=== PATIENT | female | born 1945 | race Caucasian/White ===

== ENCOUNTER 2016-11-01 13:37 | Inpatient (IN) | payer MEDICARE, OTHER ==
[~2016-11-01] VITALS: Ht 157.5 cm; Wt 64.2 kg
[~2016-11-01 13:37] MED LIST: ALPR0.5T6 PO; ATEN50TA PO; BENA10TA48 PO; ENAL10TA88 PO; FAMO10TA84 PO; METF-480 PO; OMEP20CA16 PO; PHE15 PO
[2016-11-01] MEDS ORDERED: NITROGLYCERIN (SL) 0.4 MG TAB SL PRN (15:30)
[2016-11-01] MEDS ORDERED: NACL 0.9% 3 ML SYG IV SCH (15:30)
[2016-11-01] MEDS ORDERED: hydrALAzine 20 MG INJ IV PRN (15:30)
[2016-11-01] MEDS ORDERED: MAGNESIUM HYDROXIDE 30ML CUP PO PRN (15:30)
[2016-11-01] MEDS ORDERED: DOCUSATE SODIUM 100 MG CAP PO PRN (15:30)
[2016-11-01] MEDS ORDERED: ACETAMINOPHEN 325 MG TAB PO PRN (15:30)
[2016-11-01] MEDS ORDERED: NA PHOSPHATE/BIPHOS 133 ML ENEMA PR PRN (15:30)
[2016-11-01] MEDS ORDERED: ALBUTEROL/IPRATROPIUM (NEB) 3 ML AMP HHN PRN (15:30)
[2016-11-01] MEDS ORDERED: ONDANSETRON 4 MG INJ IV PRN (15:30)
[2016-11-01 15:40] VITALS: BP 173/77; PULSE 69; RESP 18
[2016-11-01] MEDS ORDERED: CEFTRIAXONE 1 GM/50 ML (PMX) 50 ML IVPB SCH (16:00)
[2016-11-01 16:09] VITALS: Ht 157.5 cm; Wt 64.2 kg
[2016-11-01] MEDS: HYDROCODONE/APAP (5/325) TAB PO PRN ×2 (16:32→23:05)
[2016-11-01] MEDS: SOD CHLORIDE 0.45% 1,000 ML IV SCH (16:33)
[2016-11-01] MEDS ORDERED: PHENOBARBITAL 32.4 MG TAB PO PRN (19:30)
[2016-11-01] MEDS ORDERED: HYDROmorphONE 1 MG/ML SYG IV PRN (19:30)
[2016-11-01] MEDS ORDERED: PHENOBARBITAL PO SCH (19:30)
[2016-11-01] MEDS: morphine 2 MG INJ IV PRN (20:08)
--- NOTE | 2016-11-01 20:34 | HP ---
DATE OF ADMISSION: 11/01/2016 A 71-year-old female. CHIEF COMPLAINT: Abdominal pain. HISTORY OF PRESENT ILLNESS: A 71-year-old female with past medical history of GI bleeding ulcer, ty pe 2 diabetes, essential hypertension, abdominal hernias, resistant UTIs in the past, diverticulitis , who has been having abdominal pain for the last 2 days. She went to it looks like an outside hosp [facility] ER 24 hours ago, was sent home with p.o. antibiotics because they thought she had a UTI, but sh e continued to have pain at home. She had nausea symptoms, but no vomiting. She has no headaches o r dizziness or loss of consciousness. No chest pain or shortness of breath, no fevers or chills, no upper or lower GI bleeding. She went back to the outside hospital ER today and they did a CT scan that did show actually some abdominal wall hernias; however, before that she had a urine culture don e 24 hours before, and that showed greater than 100,000 E. coli urinary tract infection and 2 to 5 W BCs in her urine 24 hours ago, so she was diagnosed with left-sided pyelonephritis, as she had posit jorge left CVA tenderness. She has been transferred over here due to insurance purposes. PAST MEDICAL HISTORY: As stated above. ALLERGIES: NO KNOWN DRUG ALLERGIES. HOME MEDICATIONS: 1. Atenolol 50 mg daily. 2. Benazepril 10 mg daily. 3. Enalapril 1 tab daily. 4. Alprazolam 1 tablet p.o. at bedtime p.r.n. 5. Phenobarbital 1 tab p.o. q.6h. p.r.n. 6. Famotidine 20 mg daily. 7. Omeprazole 20 mg daily. 8. Metformin 1 tab daily. PAST SURGICAL HISTORY: She had an appendix removal in the past, diverticulitis surgery in the past, and GI ulcer bleeding and surgery in the past. SOCIAL HISTORY: Negative for smoking, drinking, or IV drug abuse. PHYSICAL EXAMINATION: VITAL SIGNS: T-max 98.6, pulse 69, respirations 18, blood pressure 173/77, saturating at 98% nasal cannula. GENERAL: Patient sitting in chair. Family members at the bedside. She is in mild distress but sofia rt. HEENT: Pupils equal, round, react to light. Extraocular muscles intact. NECK: Supple, no thyromegaly. LUNGS: Clear to auscultation bilaterally. CARDIOVASCULAR: Normal S1, S2. No rubs or gallops. Regular rate and rhythm. ABDOMEN: Positive left-sided CVA tenderness. Otherwise, normal bowel sounds. No rebound or guardi ng otherwise. MUSCULOSKELETAL: No lower extremity bilaterally. NEUROLOGIC: No focal deficits. LABORATORIES: INR is 1.1. WBC 4.35, hemoglobin 13, hematocrit 39.4, platelets of 155. Chest x-ray showed no acute processes in the lungs, mild cardiomegaly. UA today shows negative nitrites, negative ketones, negative leukocyte esterase, but again (see HPI) , she had a positive urine culture 24 hours ago at the outside hospital. Today the [facility] panel is essentially normal. Lipase is normal. Lactate is normal. She did have a CT abdomen and pelvis performed. It did show new midline ventral abdominal wall kimmie ia in the upper abdomen. The left lateral pelvic abdominal wall hernia has increased moderately in size. Both of these contain only omental fat. Gallbladder is distended. ASSESSMENT/PLAN: This is a 71-year-old female coming in with signs of left flank pain, possibly sec ondary to pyelonephritis given the positive urine culture, and also abdominal wall hernias. 1. Left flank pain secondary most likely to pyelonephritis. Put her on broad spectrum antibiotics, IV fluids, check TSH, A1c, lipid panel. Follow up final culture results. Check labs in the [facility]. IV fluids, antiemetics as well. Continue broad-spectrum antibiotics. 2. History of type 2 diabetes. Check A1c, put her on sliding scale insulin. 3. Essential hypertension. Continue current blood pressure medicines that include atenolol and hyd ralazine p.r.n. 4. Abdominal hernias. Again, continue to monitor for now. If her pain worsens, we will consider [facility] consult at that time. 5. Prior history of diverticulitis. No present issues. Continue to monitor for now. 6. Gastrointestinal ulcer bleeding history. Again, continue both H2 constance and proton pump inhibi tors. No signs of any bleeding presently. 7. Deep venous thrombosis prophylaxis: She is on Heparin subcutaneously. Dictated By: GISEL SCHWARTZ Conf#: [id number] DID#: [id number]
[2016-11-01 21:28] VITALS: BP 173/78; RESP 20
[2016-11-01] MEDS: PIPER-TAZO 3.375 GM IV (PMX) 100 ML IVPB SCH (21:47)
[2016-11-01] MEDS: ATENOLOL 50 MG TAB PO SCH (21:48)
[2016-11-01] MEDS: HEPARIN 5,000 UNIT/0.5 ML VIAL SC SCH (21:49)
[2016-11-01 23:01] VITALS: BP 159/91; PULSE 57
[2016-11-02] MEDS: PIPER-TAZO 3.375 GM IV (PMX) 100 ML IVPB SCH ×5 (00:37→23:10)
[2016-11-02] MEDS: LORAZEPAM 2 MG INJ IV PRN (01:58)
[2016-11-02] MEDS: SOD CHLORIDE 0.45% 1,000 ML IV SCH ×3 (04:50→23:11)
[2016-11-02 04:54] LABS: ADD UMIC YES; URINE BILIRUBIN (Dip) NEGATIVE (NEGATIVE); URINE BLOOD (Dip) TRACE (NEGATIVE); URINE COLOR LT. YELLOW (YELLOW); URINE GLUCOSE (Dip) NEGATIVE (NEGATIVE); URINE KETONES (Dip) NEGATIVE (NEGATIVE); URINE LEUKOCYTE ESTERASE (Dip) NEGATIVE (NEGATIVE); URINE NITRITE (Dip) NEGATIVE (NEGATIVE); URINE TOTAL PROTEIN (Dip) NEGATIVE (NEGATIVE); URINE UROBILINOGEN (Dip) 0.2 E.U./dL (0.1-1.0)
[2016-11-02] MEDS: PANTOPRAZOLE 40 MG INJ IV SCH (05:08)
[2016-11-02 05:10] LABS: ADD SCAN DIFF NO
[2016-11-02 05:15] LABS: BASOPHILS % 0.4 % (0.0-2.0); EOSINOPHILS # 0.1 10^3/ul (0.0-0.5); EOSINOPHILS % 2.1 % (0.0-7.0); HEMATOCRIT 36.8 % (37.0-47.0); HEMOGLOBIN 11.9 g/dl (12.0-16.0); LYMPHOCYTES # 1.4 10^3/ul (0.8-2.9); LYMPHOCYTES % 26.4 % (15.0-51.0); MEAN CORPUSCULAR HGB CONC 32.3 g/dl (32.0-37.0); MEAN CORPUSCULAR VOLUME 92.7 fl (82.0-101.0); MONOCYTE # 0.5 10^3/ul (0.3-0.9); MONOCYTES % 9.5 % (0.0-11.0); NEUTROPHIL # 3.3 10^3/ul (1.6-7.5); NEUTROPHILS % 61.2 % (39.0-77.0); PLATELET COUNT 142 10^3/UL (140-415); RED BLOOD COUNT 3.97 10^6/ul (4.20-5.40); RED CELL DISTRIBUTION WIDTH 14.1 % (11.5-14.5); WHITE BLOOD COUNT 5.4 10^3/ul (4.8-10.8)
[2016-11-02 05:41] LABS: CALCIUM 9.1 mg/dl (8.4-10.2); CHOL/HDL RATIO 3.1 RATIO; CREATININE 1.04 mg/dl (0.44-1.00); MAGNESIUM 2.4 mg/dl (1.7-2.5); PHOSPHORUS 3.7 mg/dl (2.5-4.9); POTASSIUM 4.1 mmol/L (3.5-5.1)
[2016-11-02 05:43] LABS: BACTERIA,URINE FEW; SQUAMOUS EPITHELIAL CELL,UR FEW; URINE RBCS 0-2 /HPF (0)
[2016-11-02 06:03] LABS: THYROID STIMULATING HORMONE 4.34 MIU/L (0.465-4.680)
[2016-11-02 08:14] VITALS: BP 127/60; RESP 16
[2016-11-02] MEDS ORDERED: NON-FORMULARY/PATIENT OWN MED (Famotidine* 10 MG) PO SCH (09:00)
[2016-11-02] MEDS: HEPARIN 5,000 UNIT/0.5 ML VIAL SC SCH ×2 (09:33→21:00)
[2016-11-02] MEDS: FAMOTIDINE 20 MG TAB PO SCH (09:34)
[2016-11-02] MEDS: ATENOLOL 50 MG TAB PO SCH (09:35)
[2016-11-02] MEDS: HYDROCODONE/APAP (5/325) TAB PO PRN ×3 (11:04→23:10)
--- NOTE | 2016-11-02 15:19 | PN ---
Date/Time of Note Date/Time of Note DATE: 11/02/16 TIME: 15:17 Assessment/Plan VTE Prophylaxis VTE Prophylaxis Intervention: heparin Lines/Catheters IV C[facility] Type [facility]from [facility] Peripheral IV Urinary Cath still in place: No Assessment/Plan Chief Complaint/Hosp Course ASSESSMENT/PLAN: This is a 71-year-old female coming in with signs of left flank pain, possibly secondary to pyelonephritis given the positive urine culture, and also abdominal wall hernias. 1. Left flank pain secondary most likely to pyelonephritis - improved - continue broad spectrum antibiotics, IV fluids, - Follow up final culture results. - IV fluids, antiemetics as well. 2. History of type 2 diabetes - sliding scale insulin. 3. Essential hypertension. Continue current blood pressure medicines that include atenolol and hydralazine p.r.n. 4. Abdominal hernias. Again, continue to monitor for now. If her pain worsens , we will consider getting surgery consult at that time. 5. Prior history of diverticulitis. No present issues. Continue to monitor for now. 6. Gastrointestinal ulcer bleeding history. Again, continue both H2 constance and proton pump inhibitors. No signs of any bleeding presently. 7. Deep venous thrombosis prophylaxis: She is on Heparin subcutaneously. Problems: Subjective 24 Hr Interval Summary Free Text/Dictation Pt has less left flank pain. Exam/Review of Systems Vital Signs Vitals Vital Signs Date Time Temp Pulse Resp B/P Pulse Ox O2 Delivery O2 Flow Rate FiO2 11/02/16 08:14 98.2 60 16 127/60 93 11/01/16 15:40 Nasal Cannula 2.0 Intake and Output 11/01/16 11/01/16 11/02/16 15:00 23:00 07:00 Intake Total 150 ml 1987 ml Balance 150 ml 1988 ml Exam GENERAL: Patient sitting in chair. Family members at the bedside. She is in mild distress but alert. HEENT: Pupils equal, round, react to light. Extraocular muscles intact. NECK: Supple, no thyromegaly. LUNGS: Clear to auscultation bilaterally. CARDIOVASCULAR: Normal S1, S2. No rubs or gallops. Regular rate and rhythm. ABDOMEN: less left-sided CVA tenderness. Otherwise, normal bowel sounds. No rebound or guarding otherwise. MUSCULOSKELETAL: No lower extremity bilaterally. NEUROLOGIC: No focal deficits. Results Result Diagram: 11/02/16 0440 11/02/16 0440 Results 24 hrs Laboratory Tests Test 11/01/16 16:05 11/01/16 16:37 11/01/16 23:59 11/02/16 04:40 Free Thyroxine 1.18 Bedside Glucose 108 Urine Color LT. YELLOW Urine Clarity CLEAR Urine pH 6.5 Urine Specific [place] <=1.005 L Urine Ketones NEGATIVE Urine Nitrite NEGATIVE Urine Bilirubin NEGATIVE Urine Urobilinogen 0.2 E.U./dL Urine Leukocyte Esterase NEGATIVE Urine Microscopic RBC 0-2 Urine Microscopic WBC 0-2 Urine Squamous Epithelial Cells FEW Urine Bacteria FEW Urine Hemoglobin TRACE Urine Glucose NEGATIVE Urine Total Protein NEGATIVE White Blood Count 5.4 Red Blood Count 3.97 L Hemoglobin 11.9 L Hematocrit 36.8 L Mean Corpuscular Volume 92.7 Mean Corpuscular Hemoglobin 30.0 Mean Corpuscular Hemoglobin Concent 32.3 Red Cell Distribution Width 14.1 Platelet Count 142 Mean Platelet Volume 11.0 H Neutrophils % 61.2 Lymphocytes % 26.4 Monocytes % 9.5 Eosinophils % 2.1 Basophils % 0.4 Nucleated Red Blood Cells % 0.0 Neutrophils # 3.3 Lymphocytes # 1.4 Monocytes # 0.5 Eosinophils # 0.1 Basophils # 0.0 Nucleated Red Blood Cells # 0.0 Sodium Level 141 Potassium Level 4.1 Chloride Level 106 Carbon Dioxide Level 29 Anion Gap 10 Blood Urea Nitrogen 12 Creatinine 1.04 H Glucose Level 118 Hemoglobin A1c 5.5 Calcium Level 9.1 Phosphorus Level 3.7 Magnesium Level 2.4 Triglycerides Level 78 Cholesterol Level 130 LDL Cholesterol, Calculated 73 HDL Cholesterol 41 Cholesterol/HDL Ratio 3.1 Thyroid Stimulating Hormone (TSH) 4.340 Medications Medications Current Medications Ondansetron HCl (Zofran Inj) 4 mg Q6H PRN IV NAUSEA AND/OR VOMITING; Start at 15:30 Acetaminophen (Tylenol Tab) 650 mg Q6H PRN PO PAIN LEVEL 1-3 OR FEVER; Start at 15:30 Acetaminophen/ Hydrocodone Bitart ([place] (5/325)) 1 tab Q6H PRN PO MODERATE PAIN LEVEL 4-6 Last administered on 11/02/16t 11:04; Admin Dose 1 TAB; Start at 15:30 Morphine Sulfate (morphine) 2 mg Q4H PRN IV SEVERE PAIN LEVEL 7-10 Last administered on 11/01/16 20:08; Admin Dose 2 MG; Start 11/01/16 at 15:30 Docusate Sodium (Colace) 100 mg Q12H PRN PO CONSTIPATION; Start 11/01/16 at 15: 30 Magnesium Hydroxide (Milk Of Mag) 30 ml DAILY PRN PO CONSTIPATION; Start at 15:30 Sodium Biphosphate/ Sodium Phosphate (Fleet Enema) 133 ml DAILY PRN [place] CONSTIPATION; Start 11/01/16 at 15:30 Pantoprazole (Protonix Iv) 40 mg DAILY@06 IV Last administered on 11/02/16 05: 08; Admin Dose 40 MG; Start 11/02/16 at 06:00 Heparin Sodium (Porcine) 5000 unit 5,000 unit Q12 SC Last administered on 09:33; Admin Dose 5,000 UNIT; Start 11/01/16 at 21:00 Sodium Chloride (1/2 NS) 1,000 ml @ 75 mls/hr [id number] IV Last administered on 11/02/16 08:15; Admin Dose 75 MLS/HR; Start 11/01/16 at 15:30 Lorazepam (Ativan) 0.5 mg Q6H PRN IV ANXIETY Last administered on 11/02/16 01: 58; Admin Dose 0.5 MG; Start 11/01/16 at 15:30 Hydralazine HCl (Apresoline) 10 mg Q6H PRN IV SBP GREATER THAN 180; Start 11/01 at 15:30 Nitroglycerin 1 tab 1 tab Q5M PRN SL ANGINA; Start 11/01/16 at 15:30 Piperacillin Sod/ Tazobactam Sod (Zosyn 3.375gm/ 100 ml (Pmx)) 100 ml @ 200 mls /hr Q6 IVPB Last administered on 11/02/16 11:04; Admin Dose 200 MLS/HR; Start 11/01/16 at 19:30 Hydromorphone HCl (Dilaudid) 1 mg Q4H PRN IV PAIN; Start 11/01/16 at 19:30 Atenolol (Tenormin) 50 mg DAILY PO Last administered on 11/02/16 09:35; Admin Dose 50 MG; Start 11/01/16 at 19:30 Famotidine (Pepcid) 10 mg DAILY PO Last administered on 11/02/16t 09:34; Admin Dose 10 MG; Start 11/02/16 at 09:00 Phenobarbital (Luminal) 16.2 mg Q6H PRN PO XX; Start 11/01/16 at 19:30 GISEL AGUILAR November 02, 2016 15:19
[2016-11-02 21:02] VITALS: BP 135/59; RESP 18
[2016-11-03] MEDS: LORAZEPAM 2 MG INJ IV PRN (01:24)
[2016-11-03] MEDS: morphine 2 MG INJ IV PRN (04:44)
[2016-11-03] MEDS: PANTOPRAZOLE 40 MG INJ IV SCH (05:48)
[2016-11-03] MEDS: PIPER-TAZO 3.375 GM IV (PMX) 100 ML IVPB SCH ×2 (05:48→11:25)
[2016-11-03 06:02] LABS: ADD SCAN DIFF NO
[2016-11-03 06:09] LABS: BASOPHILS % 0.6 % (0.0-2.0); EOSINOPHILS # 0.1 10^3/ul (0.0-0.5); EOSINOPHILS % 3.3 % (0.0-7.0); HEMATOCRIT 35.8 % (37.0-47.0); HEMOGLOBIN 11.7 g/dl (12.0-16.0); LYMPHOCYTES # 1.1 10^3/ul (0.8-2.9); LYMPHOCYTES % 33.3 % (15.0-51.0); MEAN CORPUSCULAR HGB CONC 32.7 g/dl (32.0-37.0); MEAN CORPUSCULAR VOLUME 91.8 fl (82.0-101.0); MEAN PLATELET VOLUME 11.6 fl (7.4-10.4); MONOCYTE # 0.3 10^3/ul (0.3-0.9); MONOCYTES % 9.1 % (0.0-11.0); NEUTROPHIL # 1.8 10^3/ul (1.6-7.5); NEUTROPHILS % 53.4 % (39.0-77.0); PLATELET COUNT 136 10^3/UL (140-415); RED CELL DISTRIBUTION WIDTH 13.9 % (11.5-14.5); WHITE BLOOD COUNT 3.3 10^3/ul (4.8-10.8)
[2016-11-03 06:41] LABS: POTASSIUM 3.6 mmol/L (3.5-5.1)
[2016-11-03 06:43] LABS: CREATININE 1.01 mg/dl (0.44-1.00)
[2016-11-03 06:44] LABS: CALCIUM 8.8 mg/dl (8.4-10.2)
[2016-11-03 07:49] VITALS: BP 149/63; RESP 18
[2016-11-03] MEDS: FAMOTIDINE 20 MG TAB PO SCH (09:02)
[2016-11-03] MEDS: ATENOLOL 50 MG TAB PO SCH (09:02)
[2016-11-03] MEDS: HEPARIN 5,000 UNIT/0.5 ML VIAL SC SCH (09:04)
[2016-11-03] MEDS: HYDROCODONE/APAP (5/325) TAB PO PRN (11:25)
[2016-11-03] MEDS ORDERED: HYDR-906 PO (14:20)
[2016-11-03] MEDS ORDERED: LEVO250T35 PO (14:20)
--- NOTE | 2016-11-03 14:24 | DS ---
Date/Time of Note Date/Time of Note DATE: 11/03/16 TIME: 14:20 Discharge Summary Admission/Discharge Info Admit Date/Time November 01, 2016 at 14:24 Discharge Date/Time Final Diagnosis 1. Urinary tract infection, improving, on levaquin 2. DM, stable, resume metformin 3. Hypertension. controlled 4. Abdominal hernias. follow up with PCP Patient Condition: Stable Hospital Course A 71-year-old female with past medical history of GI bleeding ulcer, type 2 diabetes, essential hypertension, abdominal hernias, resistant UTIs in the past , diverticulitis, who has been having abdominal pain for the last 2 days. She went to it looks like an outside hospital ER 24 hours ago, was sent home with p.o. antibiotics because they thought she had a UTI, but she continued to have pain at home. She had nausea symptoms, but no vomiting. She has no headaches or dizziness or loss of consciousness. No chest pain or shortness of breath, no fevers or chills, no upper or lower GI bleeding. She went back to the outside hospital ER today and they did a CT scan that did show actually some abdominal wall hernias; however, before that she had a urine culture done 24 hours before, and that showed greater than 100,000 E. coli urinary tract infection and 2 to 5 WBCs in her urine 24 hours ago, so she was diagnosed with left-sided pyelonephritis, as she had positive left CVA tenderness. She has been transferred over here due to insurance purposes. Patient is treated with zosyn for UTI. Symptoms improved. She will be discharged on levaquin 250 mg po daily for 5 more days. Home Meds Active Scripts Hydrocodone/Acetaminophen ([place] 5-325 Tablet) 1 Each Tablet, 1 EACH PO Q4H, # 20 TAB Prov:LUIGI TURNER MD 11/03/16 Levofloxacin* (Levaquin*) 250 Mg Tablet, 250 MG PO DAILY for 5 Days, TAB Prov:LUIGI TURNER MD 11/03/16 Reported Medications Omeprazole* (Omeprazole*) 20 Mg Capsule.dr, 20 MG PO DAILY, CAP 02/13/15 Famotidine* (Famotidine*) 10 Mg Tablet, 10 MG PO DAILY, TAB 02/13/15 Atenolol* (Atenolol*) 50 Mg Tablet, 50 MG PO DAILY, TAB 02/13/15 Benazepril Hcl* (Benazepril Hcl*) 10 Mg Tablet, 10 MG PO DAILY, TAB 02/13/15 Alprazolam* (Alprazolam*) 0.5 Mg Tablet, 1 TAB PO QHS PRN 05/27/12 Phenobarbital (Phenobarbital) 16.2 Mg Tab, 1 TAB PO Q6HRS PRN 05/27/12 Metformin* (Glucophage*) 850 Mg Tablet, 1 TAB PO DAILY 05/27/12 Discontinued Reported Medications Enalapril (Enalapril) 10 Mg Tablet, 1 TAB PO DAILY 05/27/12 Follow-up Plan PCP in one week Primary Care Provider Omar Marie Pending Labs Laboratory Tests Test 11/03/16 05:15 White Blood Count 3.310^3/ul (4.8-10.8) Red Blood Count 3.9010^6/ul (4.20-5.40) Hemoglobin 11.7g/dl (12.0-16.0) Hematocrit 35.8% (37.0-47.0) Mean Corpuscular Volume 91.8fl (82.0-101.0) Mean Corpuscular Hemoglobin 30.0pg (29.0-33.0) Mean Corpuscular Hemoglobin Concent 32.7g/dl (32.0-37.0) Red Cell Distribution Width 13.9% (11.5-14.5) Platelet Count 07486^3/UL (140-415) Mean Platelet Volume 11.6fl (7.4-10.4) Neutrophils % 53.4% (39.0-77.0) Lymphocytes % 33.3% (15.0-51.0) Monocytes % 9.1% (0.0-11.0) Eosinophils % 3.3% (0.0-7.0) Basophils % 0.6% (0.0-2.0) Nucleated Red Blood Cells % 0.0/100WBC (0.0-0.0) Neutrophils # 1.810^3/ul (1.6-7.5) Lymphocytes # 1.110^3/ul (0.8-2.9) Monocytes # 0.310^3/ul (0.3-0.9) Eosinophils # 0.110^3/ul (0.0-0.5) Basophils # 0.010^3/ul (0.0-0.1) Nucleated Red Blood Cells # 0.010^3/ul (0.0-0.0) Sodium Level 144mmol/L (135-144) Potassium Level 3.6mmol/L (3.5-5.1) Chloride Level 107mmol/L (97-110) Carbon Dioxide Level 27mmol/L (21-31) Anion Gap 14 (8-16) Blood Urea Nitrogen 12mg/dl (7-20) Creatinine 1.01mg/dl (0.44-1.00) Glucose Level 117mg/dl (70-220) Calcium Level 8.8mg/dl (8.4-10.2) LUIGI TURNER MD November 03, 2016 14:24
[2016-11-04] MEDS ORDERED: PANTOPRAZOLE (EC) 40 MG TAB PO SCH (06:00)
== END 2016-11-03 17:34 | disposition home or self-care (01) | DRG 690 ==
LOC: PP2 14:24
PROVIDERS: ADMIT Internal Medicine; ATTEND Internal Medicine
DX: N12 Tubulo-interstitial nephritis, not specified as acute or chronic (principal); E11.9 Type 2 diabetes mellitus without complications; I10 Essential (primary) hypertension; K46.9 Unspecified abdominal hernia without obstruction or gangrene; B96.20 Unspecified Escherichia coli [E. coli] as the cause of diseases classified elsewhere
CPT/HCPCS: 80048; 80061; 81001; 81003; 82962; 83036; 83735; 84100; 84439; 84443; 85025; 87086; 97162; C9113; J0696; J1644; J2060; J2270; J2543

== ENCOUNTER 2016-11-08 07:45 | Emergency (ER) | payer MEDICARE, OTHER ==
[~2016-11-08] VITALS: Ht 160 cm; Wt 65.0 kg
[~2016-11-08 07:45] MED LIST changes: -ENAL10TA88 PO; +HYDR-906 PO; +LEVO250T35 PO
[2016-11-08 07:48] VITALS: Ht 160 cm; Wt 65.0 kg
[2016-11-08] MEDS ORDERED: ONDANSETRON 4 MG INJ IV STA (07:56)
[2016-11-08] MEDS ORDERED: SOD CHLORIDE 0.9% 1,000 ML IV STA (07:56)
[2016-11-08] MEDS ORDERED: morphine 4 MG/ML VIAL IV STA (07:56)
[2016-11-08 08:28] LABS: ADD SCAN DIFF NO
[2016-11-08 08:49] LABS: ALBUMIN 4.6 g/dl (3.3-4.9)
[2016-11-08 08:51] LABS: CREATININE 1.01 mg/dl (0.44-1.00)
[2016-11-08 08:52] LABS: ALBUMIN/GLOBULIN RATIO 1.27; BILIRUBIN,INDIRECT 0.4 mg/dl (0-1.1); BILIRUBIN,TOTAL 0.4 mg/dl (0.2-1.3); CALCIUM 9.5 mg/dl (8.4-10.2); TOTAL PROTEIN 8.2 g/dl (6.1-8.1)
[2016-11-08 09:04] LABS: INR 0.93; PROTIME 12.5 Sec (12.2-14.2); TROPONIN-I 0.02 ng/ml (0.00-0.12)
--- NOTE | 2016-11-08 09:05 | RADRPT ---
PROCEDURE: CT abdomen and pelvis without IV contrast. CLINICAL INDICATION: Abdominal pain TECHNIQUE: CT scan of the abdomen and pelvis without contrast was performed on the [employer] volumetric [address] scanner. The patient was scanned without intravenous contrast. Coronal and sagittal refo rmatted images were obtained from the axial source images. The CTDI vol is 6.93 mGy and the DLP is 3 78.06 mGy-cm. COMPARISON: None. FINDINGS: CT abdomen: Dependent atelectatic changes in the lung bases is seen. A 5 mm nodule in the right lower lobe is s een on series 3 image number 32. The bleb is seen in the right lower lobe measuring 1.3 cm in size. The heart size is not enlarged and is without pericardial thickening or effusion. The liver is normal in size and density and is without focal mass or intrahepatic biliary dilatation . The spleen is normal in size and homogeneous in density. The stomach is grossly unremarkable. T he pancreas as visualized is normal. The gallbladder is distended. No common bile duct dilatation is seen. The adrenal glands are symmetric and normal. The kidneys are symmetrically unremarkable as well. No renal calculus or obstructive uropathy or mass lesion is seen. The aorta is of normal in caliber. Atherosclerotic vascular disease is seen. There is no retroperito ashley lymphadenopathy. The meseret hepatis region is clear. The large bowel is stool-filled. The smal l and large bowel and mesentery, as visualized, are otherwise unremarkable. No inflammatory changes in the periappendiceal region is seen. A left anterior lateral abdominal wall fat containing hernia is seen. The fascial defect measures 2.6 cm in size. A small fat containing ventral hernia is also seen in the midline. CT pelvis: Peripheral uterine calcifications are seen which appear to be vascular in nature. The pelvic sidewa lls and inguinal regions are clear. No pelvic mass, lymphadenopathy, or free fluid is seen. No acu te inflammation is seen. The urinary bladder is within normal limits. The surrounding osseous structures are unremarkable. No osteolytic or osteoblastic lesion is detect ed. IMPRESSION: 1. Distended gallbladder lumen. 2. Stool filled large bowel. 3. No CT evidence of urolithiasis or obstructive uropathy. 4. Fat containing left anterior lateral abdominal wall as well as midline ventral hernias. 5. 5 mm right lower lobe nodule. Recommendations Solid nodules Nodule size: = 4 mm - low risk patients: no follow-up needed - high risk patients: follow-up at 12 months and if no change, no further imaging needed Nodule size: 4-6 mm - low risk patients: follow-up at 12 months and if no change, no further imaging needed - high risk patients: initial follow-up CT at 6-12 months and then at 18-24 months if no change Nodule size: >6-8 mm - low risk patients: initial follow-up CT at 6-12 months and then at 18-24 months if no change - high risk patients: initial follow-up CT at 3-6 months and then at 9-12 and 24 months if no change Nodule size: >8 mm - either low or high risk patients - follow-up CTs at around 3, 9, and 24 months - dynamic contrast enhanced CT, PET, and/or biopsy Note: newly detected indeterminate nodule in persons 35 years of age or older. - low risk patients: minimal or absent history of smoking and or other known risk factors - high risk patients: history of smoking or of other known risk factors (e.g. first degree relative with lung cancer, or exposure to asbestos, radon, uranium) if a nodule up to 8 mm is partly solid or is ground glass further follow up is required after 24 mon ths to exclude possible slow growing adenocarcinoma (KAVYA) RPTAT: HPNM Physician Mario Date Time Electronically viewed and signed by Marcell Hearn Physician on 11/08/2016 09:05 /
[2016-11-08 09:35] LABS: ADD UMIC YES; URINE BILIRUBIN (Dip) NEGATIVE (NEGATIVE); URINE BLOOD (Dip) TRACE (NEGATIVE); URINE COLOR LT. YELLOW (YELLOW); URINE GLUCOSE (Dip) NEGATIVE (NEGATIVE); URINE KETONES (Dip) NEGATIVE (NEGATIVE); URINE LEUKOCYTE ESTERASE (Dip) NEGATIVE (NEGATIVE); URINE NITRITE (Dip) NEGATIVE (NEGATIVE); URINE TOTAL PROTEIN (Dip) NEGATIVE (NEGATIVE); URINE UROBILINOGEN (Dip) 0.2 E.U./dL (0.1-1.0)
[2016-11-08 10:06] LABS: SQUAMOUS EPITHELIAL CELL,UR OCCASIONAL; URINE RBCS 0-2 /HPF (0)
[2016-11-08 10:07] LABS: BASOPHILS % 0.4 % (0.0-2.0); EOSINOPHILS # 0.1 10^3/ul (0.0-0.5); EOSINOPHILS % 0.9 % (0.0-7.0); HEMATOCRIT 41.9 % (37.0-47.0); HEMOGLOBIN 13.6 g/dl (12.0-16.0); LYMPHOCYTES # 1.1 10^3/ul (0.8-2.9); LYMPHOCYTES % 19.5 % (15.0-51.0); MEAN CORPUSCULAR HEMOGLOBIN 29.8 pg (29.0-33.0); MEAN CORPUSCULAR HGB CONC 32.5 g/dl (32.0-37.0); MEAN CORPUSCULAR VOLUME 91.9 fl (82.0-101.0); MEAN PLATELET VOLUME 11.8 fl (7.4-10.4); MONOCYTE # 0.3 10^3/ul (0.3-0.9); MONOCYTES % 4.9 % (0.0-11.0); NEUTROPHIL # 4.2 10^3/ul (1.6-7.5); NEUTROPHILS % 73.4 % (39.0-77.0); PLATELET COUNT 163 10^3/UL (140-415); RED BLOOD COUNT 4.56 10^6/ul (4.20-5.40); RED CELL DISTRIBUTION WIDTH 14.4 % (11.5-14.5); WHITE BLOOD COUNT 5.7 10^3/ul (4.8-10.8)
[2016-11-08] MEDS ORDERED: POLY17PO6 PO (10:11)
[2016-11-08] MEDS ORDERED: DOCU-144 PO (10:11)
[2016-11-08] MEDS ORDERED: ONDA4TAB8 PO (10:11)
--- NOTE | 2016-11-08 10:14 | ERD ---
ER Documentation Chief Complaint Date/Time DATE: 11/08/16 TIME: 10:12 Chief Complaint right flank pain radiates to the front x 2 weeks HPI 71-year-old woman complaining of 1 day left flank and left lower abdominal pain and fullness. She was recently diagnosed with urinary tract infection and has been using levofloxacin daily, she has 1 more dose to completion. She denies fevers or chills, no blood per rectum or melena, no chest pain or shortness of breath, no headache or blurry vision. She denies dysuria. Flank and abdominal pain are nonradiating and nonexertional. ROS All systems reviewed and are negative except as per history of present illness. Medications Home Meds Active Scripts Ondansetron Hcl* (Zofran*) 4 Mg Tablet, 4 MG PO Q8H Y for NAUSEA AND/OR VOMITING , #12 TAB Prov:ABDIRAHMAN DIETZ MD 11/08/16 Docusate Sodium* (Colace*) 100 Mg Capsule, 100 MG PO BID for CONSTIPATION, # 3012 CAP Prov:ABDIRAHMAN DIETZ MD 11/08/16 Polyethylene Glycol* (Miralax*) 17 Gm Powd.pack, 17 GM PO DAILY for CONSTIPATION , #7 Prov:ABDIRAHMAN DIETZ MD 11/08/16 Hydrocodone/Acetaminophen ([place] 5-325 Tablet) 1 Each Tablet, 1 EACH PO Q4H, # 20 TAB Prov:LUIGI TURNER MD 11/03/16 Levofloxacin* (Levaquin*) 250 Mg Tablet, 250 MG PO DAILY for 5 Days, TAB Prov:LUIGI TURNER MD 11/03/16 Reported Medications Omeprazole* (Omeprazole*) 20 Mg Capsule.dr, 20 MG PO DAILY, CAP 02/13/15 Famotidine* (Famotidine*) 10 Mg Tablet, 10 MG PO DAILY, TAB 02/13/15 Atenolol* (Atenolol*) 50 Mg Tablet, 50 MG PO DAILY, TAB 02/13/15 Benazepril Hcl* (Benazepril Hcl*) 10 Mg Tablet, 10 MG PO DAILY, TAB 02/13/15 Alprazolam* (Alprazolam*) 0.5 Mg Tablet, 1 TAB PO QHS PRN 05/27/12 Phenobarbital (Phenobarbital) 16.2 Mg Tab, 1 TAB PO Q6HRS PRN 05/27/12 Metformin* (Glucophage*) 850 Mg Tablet, 1 TAB PO DAILY 05/27/12 Discontinued Reported Medications Enalapril (Enalapril) 10 Mg Tablet, 1 TAB PO DAILY 05/27/12 Allergies Allergies: Coded Allergies: No Known Allergy (Unverified , 05/27/12) PMhx/Soc Recent urinary tract infection being treated with levofloxacin, diabetes mellitus, hypertension, hernia, previous gastrointestinal bleeding, gastritis History of Surgery: Yes (gastric ulcers, left eye cartarct) Anesthesia Reaction: No Hx Neurological Disorder: No Hx Respiratory Disorders: No Hx Cardiac Disorders: Yes (HTN) Hx Psychiatric Problems: No Hx Miscellaneous Medical Probl: Yes (GI bleeding ulcer, DM, HTN, hernia/abd, UTI, diveriticulitis) Hx Alcohol Use: No Hx Substance Use: No Hx Tobacco Use: No Smoking Status: Never smoker FmHx Family History: No diabetes Physical Exam Vitals Vital Signs Date Time Temp Pulse Resp B/P Pulse Ox O2 Delivery O2 Flow Rate FiO2 11/08/16 10:31 58 20 172/72 95 Room Air 11/08/16 08:10 56 23 189/86 99 Room Air 11/08/16 07:48 97.8 58 18 209/88 93 Physical Exam GENERAL: Well-developed, well-nourished, well-hydrated, in no apparent distress , looks nontoxic in appearance HEENT: Moist mucous membranes, pink conjunctiva, no cervical spine tenderness or step-off deformities, no goiter, no jaundice or icterus, extraocular movements intact without pain. No submandibular induration, and no pharyngeal erythema NEURO: Alert and oriented 3, cranial nerves II through XII intact bilaterally, pupils equal round reactive to light, no focal deficits or facial asymmetry, sensation intact distally Strength 5/5 in upper and lower extremities bilaterally CARDIAC: Regular rate and rhythm, no murmurs rubs or gallops LUNGS: Clear bilaterally no wheezing crackles or stridor ABDOMEN: Soft nontender, no guarding, no rigidity, no rebound, no psoas sign no obturator sign. Normoactive bowel sounds SKIN: Warm and dry to touch, no abrasions, contusions, or hematomas, no lacerations, no ecchymosis, no target lesions, and without ulcers EXTREMITIES: No clubbing cyanosis or edema, calves are bilaterally symmetrical, no Homans sign, no popliteal cord sign. Distal pulses equal and bilateral PSYCH: Normal affect without agitation or irritability Result Diagram: 11/08/16 0815 11/08/16 0815 Results 24 hrs Laboratory Tests Test 11/08/16 08:15 11/08/16 08:58 White Blood Count 5.710^3/ul Red Blood Count 4.5610^6/ul Hemoglobin 13.6g/dl Hematocrit 41.9% Mean Corpuscular Volume 91.9fl Mean Corpuscular Hemoglobin 29.8pg Mean Corpuscular Hemoglobin Concent 32.5g/dl Red Cell Distribution Width 14.4% Platelet Count 92076^3/UL Mean Platelet Volume 11.8fl Neutrophils % 73.4% Lymphocytes % 19.5% Monocytes % 4.9% Eosinophils % 0.9% Basophils % 0.4% Nucleated Red Blood Cells % 0.0/100WBC Neutrophils # 4.210^3/ul Lymphocytes # 1.110^3/ul Monocytes # 0.310^3/ul Eosinophils # 0.110^3/ul Basophils # 0.010^3/ul Nucleated Red Blood Cells # 0.010^3/ul Prothrombin Time 12.5Sec Prothrombin Time Ratio 1.0 INR International Normalized Ratio 0.93 Sodium Level 143mmol/L Potassium Level 4.0mmol/L Chloride Level 102mmol/L Carbon Dioxide Level 28mmol/L Anion Gap 17 Blood Urea Nitrogen 19mg/dl Creatinine 1.01mg/dl Glucose Level 146mg/dl Calcium Level 9.5mg/dl Total Bilirubin 0.4mg/dl Direct Bilirubin 0.00mg/dl Indirect Bilirubin 0.4mg/dl Aspartate Amino Transf (AST/SGOT) 26IU/L Alanine Aminotransferase (ALT/SGPT) 31IU/L Alkaline Phosphatase 136IU/L Troponin I 0.020ng/ml Total Protein 8.2g/dl Albumin 4.6g/dl Globulin 3.60g/dl Albumin/Globulin Ratio 1.27 Lipase 35U/L Urine Color LT. YELLOW Urine Clarity CLEAR Urine pH 7.0 Urine Specific [place] 1.010 Urine Ketones NEGATIVE Urine Nitrite NEGATIVE Urine Bilirubin NEGATIVE Urine Urobilinogen 0.2 E.U./dL Urine Leukocyte Esterase NEGATIVE Urine Microscopic RBC 0-2/HPF Urine Microscopic WBC NONE SEEN/HPF Urine Squamous Epithelial Cells OCCASIONAL Urine Hemoglobin TRACE Urine Glucose NEGATIVE% Urine Total Protein NEGATIVE Current Medications Medications (Trade) Dose Ordered Sig/Mel Route PRN Reason Start Time Stop Time Status Last Admin Dose Admin Sodium Chloride (NS) 1,000 ml @ 1,000 mls/hr Q1H STAT IV 11/08/16 07:56 11/08/16 08:55 DC 11/08/16 08:12 Morphine Sulfate (morphine) 4 mg ONCE STAT IV 11/08/16 07:56 11/08/16 07:58 DC 11/08/16 08:12 Ondansetron HCl (Zofran Inj) 4 mg ONCE STAT IV 11/08/16 07:56 11/08/16 07:58 DC 11/08/16 08:12 Procedures/[facility] IV line was established patient was placed on monitoring analyst rhythm strip revealed a sinus rhythm at about 60 bpm with upright P and T waves. Patient was afebrile. EKG performed, read by me: 61 bpm, normal sinus rhythm, normal axis, no acute ST segment changes, narrow QRS complex, with good R-wave progression in precordial leads. CT scan of the abdomen and pelvis was performed, given the patient's symptoms. There was no acute inflammatory or infectious pathology noted, vascular structures were unremarkable. Please refer radiologist's dictation for full report. I administered 1 L normal saline intravenously, morphine 4 mg IV and Zofran 4 mg IV with good effect. CBC and electrolytes are normal, liver function tests are normal, troponin was negative. Urinalysis was clear. Patient symptoms have resolved completely and her vital signs have remained normal. Her abdominal exam was repeated and remained benign. Furthermore her genitourinary symptoms have been improving and she has 1 more dose of levofloxacin to use. I recommended she use it and follow-up with her PMD, I suspect her abdominal pain is related to constipation which was evident on CT imaging. Differential diagnoses considered, included but not limited to acute coronary syndrome, pulmonary embolism, aortic dissection, abdominal aortic aneurysm, sepsis, stroke, meningitis, encephalitis, pneumonia, appendicitis, cholecystitis , bowel obstruction, pyelonephritis, nephrolithiasis, cystitis, as well as metabolic, hematologic, and electrolyte abnormalities. As well as abscess, cellulitis, fractures, and dislocations. Patient feels much better at this time, and vital signs are normal, symptoms have improved. I did give strict instructions to return to the ED if symptoms continue or worsen, patient will otherwise follow-up with primary care physician. Patient understood instructions and agreed to plan. Disclaimer: Inadvertent spelling or grammatical errors are likely due to EHR/ dictation software use and do not reflect on the overall quality of patient care. Departure Diagnosis: Primary Impression: Abdominal pain Abdominal location: left lower quadrant Qualified Code: R10.32 - Left lower quadrant pain Additional Impressions: UTI (urinary tract infection) Urinary tract infection type: acute cystitis Hematuria presence: without hematuria Qualified Code: N30.00 - Acute cystitis without hematuria Constipation Constipation type: slow transit constipation Qualified Code: K59.01 - Slow transit constipation Condition: Good Patient Instructions: Abdominal Pain, Unknown Cause, (Female), Constipation ( Adult) Referrals: KEYANA BANGURA (PCP) ABDIRAHMAN DIETZ MD November 08, 2016 10:14
[2016-11-08 10:31] VITALS: BP 172/72; PULSE 58; RESP 20
== END 2016-11-08 10:38 | disposition home or self-care (01) ==
LOC: E/R 07:45
DX: R10.32 Left lower quadrant pain (principal); N30.00 Acute cystitis without hematuria; K59.01 Slow transit constipation; I10 Essential (primary) hypertension; E11.9 Type 2 diabetes mellitus without complications; Z79.84 Long term (current) use of oral hypoglycemic drugs
CPT/HCPCS: 36415; 74176; 80053; 81001; 83690; 84484; 85025; 85610; 87086; 93005; 96374; 96375; 99285; J2270; J2405; J7030; 81003

== ENCOUNTER 2018-02-12 20:11 | Emergency (ER) | END 2018-02-12 23:55 | disposition home or self-care (01) ==